=== PATIENT | female | born 2000 | race Caucasian/White ===

== ENCOUNTER 2020-03-17 13:21 | Emergency (ER) | payer OTHER ==
[2020-03-17 13:23] VITALS: BP 113/73; PULSE 80; TEMP 97.9; BMI 31.5
[2020-03-17] MEDS ORDERED: IBUPROFEN 600 MG TABLET (FP) PO ONE ×2 (14:02→14:05)
== END 2020-03-17 14:11 | disposition home or self-care (01) ==
LOC: JERFT 13:21
DX: S93.401A Sprain of unspecified ligament of right ankle, initial encounter (principal)
CPT/HCPCS: 73610-TC-RT-FY; 99283-25